=== PATIENT | female | born 1980 | race Caucasian/White ===

== ENCOUNTER → 2016-12-27 | Outpatient (CLI) | payer BC ==
--- NOTE | 2016-12-27 17:58 | CT ---
EXAMINATION TYPE: CT sinus wo con DATE OF EXAM: 12/27/2016 5:08 PM COMPARISON: NONE HISTORY: Sinus pain and pressure x years. CT DLP: 642.50 mGycm CONTRAST: None The paranasal sinuses are examined in the axial plane at 2 mm thick sections. Reconstructed images i n the coronal plane were obtained. The maxillary sinuses are clear. The ethmoid air cells are clear. The sphenoid sinuses are clear. The frontal sinuses are clear. The septum is evaluated. There is septal deviation to the left. The ostiomeatal units are patent. IMPRESSIONS: 1. Normal paranasal sinuses. 2. Left septal deviation.
== END | disposition home or self-care (01) ==
LOC: RADCTMAIN 16:51
PROVIDERS: ATTEND Otolaryngology
DX: J34.2 Deviated nasal septum (principal)
CPT/HCPCS: 70486

== ENCOUNTER → 2018-03-02 | Outpatient (CLI) | payer BC, OTHER ==
[2018-03-02 10:33] LABS: HCT 34.7 % (34.0-46.0); HGB 12.1 gm/dL (11.4-16.0); MCH 30.6 pg (25.0-35.0); MCHC 34.8 g/dL (31.0-37.0); MCV 88.2 fL (80.0-100.0); Mean Platelet Volume 9.7; Platelet Count 112 k/uL (150-450); RBC 3.94 m/uL (3.80-5.40); RDW 12.9 % (11.5-15.5); WBC 9.6 k/uL (3.8-10.6)
== END | disposition home or self-care (01) ==
LOC: LABWHC1 10:01
PROVIDERS: ATTEND Internal Medicine Hematology & Oncology
DX: D69.3 Immune thrombocytopenic purpura (principal)
CPT/HCPCS: 36415; 85027

== ENCOUNTER 2018-03-21 12:24 | Outpatient (CLI) | payer BC, OTHER ==
[2018-03-21 13:00] VITALS: BP 119/76; PULSE 66; RESP 17; TEMP 97.7
[2018-03-21 13:04] LABS: Appearance,Urine Clear (Clear); Bacteria,Urine Few /hpf; Bilirubin,Urine Negative (Negative); Blood,Urine Negative (Negative); Color,Urine Light Yellow; Glucose,Urine (UA) Negative (Negative); Ketones,Urine Negative (Negative); Leukocyte Esterase,Urine Moderate (Negative); Mucus,Urine Rare /hpf; Nitrite,Urine Negative (Negative); Protein,Urine Negative (Negative); Specific Gravity,Urine 1.007 (1.001-1.035); Squamous Epithelial Cell,Urine 2 /hpf (0-4); Urobilinogen,Urine <2.0 mg/dL (<2.0); WBC,Urine 2 /hpf (0-5)
[2018-03-21 13:07] LABS: Basophils % (A) 0 %; Eosinophils # (A) 0.1 k/uL (0-0.7); Eosinophils % (A) 1 %; HCT 36.4 % (34.0-46.0); HGB 12.3 gm/dL (11.4-16.0); Lymphocytes # (A) 1.9 k/uL (1.0-4.8); Lymphocytes % (A) 16 %; MCH 29.7 pg (25.0-35.0); MCHC 33.6 g/dL (31.0-37.0); MCV 88.2 fL (80.0-100.0); Mean Platelet Volume 10.2; Monocytes # (A) 0.5 k/uL (0-1.0); Monocytes % (A) 4 %; Neutrophils # (A) 9.1 k/uL (1.3-7.7); Neutrophils % (A) 78 %; Platelet Count 114 k/uL (150-450); RBC 4.13 m/uL (3.80-5.40); RDW 13.3 % (11.5-15.5); WBC 11.7 k/uL (3.8-10.6)
[2018-03-21 13:19] LABS: ALT 13 U/L (9-52); AST 13 U/L (14-36); Blood Urea Nitrogen 9 mg/dL (7-17); LDH 386 U/L (313-618); Uric Acid 4.2 mg/dL (3.7-7.4)
--- NOTE | 2018-04-01 07:59 | P.MSEPDOC ---
Presenting Problems - Arrival Data Date of Arrival on Unit: 03/21/18 Time of Arrival on Unit: 12:55 Mode of Transport: Ambulatory - Complaint OB-Reason for Admission/Chief Complaint: Headache, Visual Disturbances Comment: sent over from office by Dr. Olvera for PIH labs due to h/a, vision floaters. Medical History - Information : 4 Para: 0 Term: 0 : 0 Abortions: Spontaneous or Elective: 4 Number of Living Children: 0 - Gestational Age Gestational Age by JEREMI (wks/days): 35 Weeks and 6 Days Review of Systems - Review of Systems Constitutional: No problems Breast: No problems ENT: No problems Cardiovascular: No problems Respiratory: No problems Gastrointestinal: No problems Genitourinary: No problems Musculoskeletal: No problems Neurological: No problems Skin: No problems Vital Signs - Temperature Temperature: 97.7 F Temperature Source: Temporal Artery Scan - Pulse Pulse Oximetery Pulse Rate: 66 Pulse Assessment Method: Pulse Oximetry - Respirations Respiratory Rate: 17 Oxygen Delivery Method: Room Air - Blood Pressure Right Arm Blood Pressure: 119/76 Blood Pressure Mean: 90 Blood Pressure Source: Automatic Cuff Medical Screen Scoring (Pre) - Cervical Exam Dilation: Exam Deferred Effacement: Exam Deferred Membranes: Intact - Uterine Contractions Frequency: N/A Duration: N/A Intensity: N/A - Maternal Vital Signs Maternal Temperature: N/A Maternal Blood Pressure: N/A Maternal Respirations: N/A - Pain Assessment Pain Location and Character: Head Pain Scale Used: Numeric (1 - 10) Pain Intensity: 0 - Maternal Trauma Maternal Trauma: N/A - Assessment Baseline FHR: 130 Heart Rate - NICHD Category: Category I (Normal) = 0 NST: Reactive Position: N/A Station: N/A - Total Score Total Score (Pre): 0 - Level of Risk Level of Risk: Low (0-5) Physician Notification (Pre) - Notification Comment Comment: Dr. Olvera called previous to patient arriving to give telephone orders for PIH labs including LDH, Uric acid, BUN/creat, u/a (patient also arrived with written script). Call with results. Disposition - Disposition OB Disposition: Triage Discharge Date: 03/21/18 Discharge Time: 13:30 I agree with the RN Medical Screening Exam: Yes Risk & Benefit of care provided described in d/c instruction: Yes Diagnosis: RELATED CONDITIONS, UNSPECIFIED, THIRD TRIMESTER (Vague symptoms rule out preeclampsia)
== END 2018-03-21 13:30 | disposition home or self-care (01) ==
LOC: FBPOP 12:24
PROVIDERS: ATTEND Obstetrics & Gynecology
DX: O26.93 Pregnancy related conditions, unspecified, third trimester (principal); Z3A.35 35 weeks gestation of pregnancy
CPT/HCPCS: 59025; 81001; 82565; 83615; 84450; 84460; 84520; 84550; 85025; 99215

== ENCOUNTER → 2018-04-12 | Outpatient (CLI) | payer BC, OTHER ==
[2018-04-12 14:28] LABS: HCT 37.1 % (34.0-46.0); HGB 12.3 gm/dL (11.4-16.0); MCH 29.9 pg (25.0-35.0); MCHC 33.1 g/dL (31.0-37.0); MCV 90.4 fL (80.0-100.0); Mean Platelet Volume 11.4; RDW 13.4 % (11.5-15.5)
[2018-04-12 14:47] LABS: Platelet Count 93 k/uL (150-450)
== END ==
LOC: LABWHC1 12:56
PROVIDERS: ATTEND Obstetrics & Gynecology
DX: D69.6 Thrombocytopenia, unspecified (principal)
CPT/HCPCS: 36415; 85027

== ENCOUNTER 2018-04-16 04:28 | Inpatient (IN) | payer BC, OTHER ==
[2018-04-16] MEDS ORDERED: CARBOPROST TROMETHAMINE 250 MCG/ML 1 ML AMP IM PRN (04:43)
[2018-04-16] MEDS ORDERED: LIDOCAINE 1% (PF) 10 MG/ML (30 ML SDV) SQ PRN (04:43)
[2018-04-16] MEDS ORDERED: METHYLERGONOVINE 0.2 MG/ML 1 ML AMP IM PRN (04:43)
[2018-04-16] MEDS ORDERED: OXYTOCIN 10 UNIT/ML 1 ML VIAL IM PRN (04:43)
[2018-04-16] MEDS ORDERED: TERBUTALINE 1 MG/ML VIAL SQ PRN (04:43)
[2018-04-16] MEDS ORDERED: OXYTOCIN 20 UNITS/1000 ML NS 1,000 ML IV SCH (04:45)
[2018-04-16 05:01] VITALS: BMI 29.2
[2018-04-16 05:03] LABS: Basophils % (A) 0 %; Eosinophils % (A) 0 %; HCT 37.9 % (34.0-46.0); HGB 12.7 gm/dL (11.4-16.0); Lymphocytes # (A) 1.5 k/uL (1.0-4.8); Lymphocytes % (A) 12 %; MCH 30.3 pg (25.0-35.0); MCHC 33.5 g/dL (31.0-37.0); MCV 90.2 fL (80.0-100.0); Mean Platelet Volume 10.8; Monocytes # (A) 0.4 k/uL (0-1.0); Monocytes % (A) 3 %; Neutrophils # (A) 10.6 k/uL (1.3-7.7); Neutrophils % (A) 84 %; Platelet Count 112 k/uL (150-450); RBC 4.21 m/uL (3.80-5.40); RDW 13.3 % (11.5-15.5); WBC 12.7 k/uL (3.8-10.6)
[2018-04-16] MEDS: LACTATED RINGERS 1,000 ML IV SCH ×3 (05:04→12:48)
[2018-04-16] MEDS ORDERED: BUTORPHANOL 1 MG/ML 1 ML VIAL IV PRN (07:50)
[2018-04-16] MEDS ORDERED: BUPIVACAINE (PF) 0.25% 30 ML VIAL ONE (09:20)
[2018-04-16] MEDS ORDERED: fentaNYL (PF) 50 MCG/ML 5 ML AMP ONE (09:20)
[2018-04-16] MEDS ORDERED: SODIUM CHLORIDE 0.9% 100 ML BAG ONE (09:20)
[2018-04-16] MEDS ORDERED: BUPIVACAINE (PF) 0.5% 12.5 ML, fentaNYL (PF) 200 MCG in SODIUM CHLORIDE 0.9% 83.5 ML EPIDURAL ONE (10:07)
[2018-04-16] MEDS ORDERED: ACETAMINOPHEN TAB 325 MG TAB PO PRN (15:06)
[2018-04-16] MEDS ORDERED: WITCH HAZEL 1 EACH MED..PAD TOPICAL PRN (15:06)
[2018-04-16] MEDS ORDERED: diphenhydrAMINE 25 MG CAP PO PRN (15:06)
[2018-04-16] MEDS ORDERED: SIMETHICONE 80 MG CHEWABLE PO PRN (15:06)
[2018-04-16] MEDS ORDERED: HYDROCORTISONE 2.5% RECTAL CREAM 30 GM TUBE RECTAL PRN (15:06)
[2018-04-16] MEDS ORDERED: BENZOCAINE/MENTHOL SPRAY 1 GM/SPRAY AEROSOL TOPICAL PRN (15:06)
[2018-04-16] MEDS ORDERED: diphenhydrAMINE 50 MG CAP PO PRN (15:06)
[2018-04-16] MEDS ORDERED: ZOLPIDEM 5 MG TAB PO PRN (15:06)
[2018-04-16] MEDS ORDERED: diphenhydrAMINE 50 MG/ML 1 ML VIAL IVP PRN ×2 (15:06)
[2018-04-16] MEDS ORDERED: LANOLIN CREAM 5 GM TUBE TOPICAL PRN (15:06)
--- NOTE | 2018-04-16 15:08 | P.HPOB ---
History of Present Illness H&P Date: 04/16/18 Chief Complaint: Intrauterine at term: Induction of labor Cherry is a 37-year-old G1 for P0 at 39 weeks 4 days gestation arise for induction of labor. Her Precis course has generally been uncomplicated other than mild thrombocytopenia. She is seen hematology for same. She did see maternal medicine for advanced maternal age, and has had nonstress tests throughout the latter part of the . Pertinent labs include O- blood type Rh antibody was negative, rubella immune, hepatitis B surface antigen was negative as well as groupie strep. Her RPR was nonreactive. Past Medical History Past Medical History: No Reported History History of Any Multi-Drug Resistant Organisms: None Reported Additional Past Surgical History / Comment(s): Melanoma removal from left leg, forehead,neck, back, left arm starting in 2004 Past Anesthesia/Blood Transfusion Reactions: No Reported Reaction Past Psychological History: No Psychological Hx Reported Smoking Status: Never smoker Past Alcohol Use History: None Reported Past Drug Use History: None Reported - Past Family History Father Family Medical History: Cancer Mother Family Medical History: Thyroid Disorder Medications and Allergies Home Medications Medication Instructions Recorded Confirmed Type predniSONE [predniSONE] 40 mg PO BID 04/16/18 04/16/18 History Allergies Allergy/AdvReac Type Severity Reaction Status Date / Time No Known Allergies Allergy Verified 04/16/18 04:42 Exam Osteopathic Statement: *. No significant issues noted on an osteopathic structural exam other than those noted in the History and Physical/Consult. - Vital Signs Vital signs: Vital Signs Temp Pulse Resp BP 04/16/18 04:59 96.8 F L 56 L 16 117/75 Intake and Output 04/16/18 04/16/18 04/16/18 06:59 14:59 22:59 Other: # Voids 1 Weight 84.822 kg - OBG Physical Exam Breast: both: normal (no masses) Abdomen: bowel sounds normal, no diffuse tenderness, no bruit present, no guarding noted, no hepatomegaly, no splenomegaly, no mass Vulva: both: normal Vagina: normal moisture, no discharge Cervix: no lesion, no discharge Uterus: normal size, normal contour Adnexa: both: normal Anus/Rectum: normal perianal skin, no rectal mass, no hemorrhoids, heme negative Results Result Diagrams: 04/16/18 04:45 Abnormal Lab Results - Last 24 Hours (Table) 04/16/18 Range/Units 04:45 WBC 12.7 H (3.8-10.6) k/uL Plt Count 112 L (150-450) k/uL Neutrophils # 10.6 H (1.3-7.7) k/uL Assessment and Plan Assessment: Intrauterine at term: Induction of labor: Mild thrombocytopenia
--- NOTE | 2018-04-16 15:11 | P.PROBDLV ---
Vaginal Delivery Note - . Vaginal Delivery Note: Patient progressed to complete and pushing with spontaneous vaginal delivery of a viable male over a first degree perineal laceration. Baby was delivered from left occiput anterior position. Following delivery of the head the anterior shoulder was unable to be delivered with ease therefore posterior shoulder was delivered by grasping underneath his axilla and rotating in a clockwise fashion until anterior shoulder released, there was a compound hand and a cord around the body. Once baby was body was delivered the remainder the baby easily delivered and baby's mouth and nares were bulb suctioned and baby was placed on mother's abdomen where the umbilical cord was allowed to pulsate for 30 seconds prior to clamping and cutting. Once was accomplished placenta was then delivered intact and Pitocin was added to the IV. scores were 8 and 9 at one and 5 minutes Jay and weight was 7 lbs. 7 oz. There was a left labial tear which was repaired with reapproximation and 1 3-0 Vicryl sutures placed to reapproximate the first degree laceration on the perineum. This was all done following Xylocaine for analgesia. Both mother and baby are stable upon delivery.
[2018-04-16 15:38] LABS: Mean Platelet Volume 11.1
[2018-04-16 15:54] LABS: Platelet Count 87 k/uL (150-450)
[2018-04-16] MEDS: IBUPROFEN 600 MG TAB PO PRN ×2 (15:58→23:10)
[2018-04-16] MEDS ORDERED: HYDROcodone/APAP 5-325MG 1 EACH TAB PO PRN (16:46)
[2018-04-16] MEDS ORDERED: Rhogam IMMUNE GLOBULIN 1,500 UNIT/1 ML IM ONE (20:10)
[2018-04-16] MEDS: SENNOSIDES-DOCUSATE SODIUM 1 EACH TAB PO SCH (20:26)
[2018-04-16] MEDS: predniSONE 10 MG TAB PO SCH (21:45)
[2018-04-17] MEDS: SENNOSIDES-DOCUSATE SODIUM 1 EACH TAB PO SCH (08:19)
--- NOTE | 2018-04-17 08:59 | P.DS ---
Providers Date of admission: 04/16/18 04:28 Expected date of discharge: 04/17/18 Attending physician: Gaetano Olvera Consults: 04/16/18 16:47 Consult Physician Urgent Consulting Provider: Jose M Solano Consult Reason/Comments: thrombocytopenia Do you want consulting provider notified?: Yes Primary care physician: Stated None Hospital Course: Cherry is doing very well day 1. She is ambulating, voiding, and she is tolerating her diet. She voices no complaints. She is requesting [place] for 3 days to home with her period was done due to less than 3 days of treatment. Vital signs stable and afebrile. Heart regular, lungs clear, extremities without pain. She is passing flatus and her uterus is firm below the umbilicus. Prescription for [place] and Motrin are provided. As is a breast pump. She will follow up with me in 6 weeks. She is stable for discharge at this time. Patient Condition at Discharge: Good Plan - Discharge Summary New Discharge Prescriptions: New HYDROcodone/APAP 5-325MG [[place] 5-325] 1 tab PO Q4HR PRN 3 Days #18 tab PRN Reason: Pain Ibuprofen [Motrin] 600 mg PO Q6HR PRN #30 tab PRN Reason: Pain No Action predniSONE [predniSONE] 40 mg PO BID Discharge Medication List predniSONE [predniSONE] 40 mg PO BID 04/16/18 [History] HYDROcodone/APAP 5-325MG [[place] 5-325] 1 tab PO Q4HR PRN 3 Days #18 tab [Rx] Ibuprofen [Motrin] 600 mg PO Q6HR PRN #30 tab 04/17/18 [Rx] Follow up Appointment(s)/Referral(s): Gaetano Olvera DO [Doctor of Osteopathic Medicine] - 6 Weeks Activity/Diet/Wound Care/Special Instructions: No heavy lifting, limit stairs and driving, pelvic rest. If any high temperatures, heavy bleeding, or severe pain call my office Discharge Disposition: HOME SELF-CARE
[2018-04-17 09:35] VITALS: BP 129/68; PULSE 51; RESP 16; TEMP 98.7
[2018-04-17 13:06] LABS: Mean Platelet Volume 11.3
[2018-04-17 13:08] LABS: Platelet Count 98 k/uL (150-450)
[2018-04-17] MEDS: predniSONE 10 MG TAB PO SCH (13:14)
[2018-04-17] MEDS: IBUPROFEN 600 MG TAB PO PRN (16:17)
--- NOTE | 2018-04-17 17:09 | P.CONS ---
History of Present Illness - Reason for Consult Consult date: 04/17/18 recommendations for ITP after delivery Requesting physician: Gaetano Olvera - Chief Complaint ITP - History of Present Illness Cherry was referred to Dr. Solano by Dr. Olvera for evaluation of mild thrombocytopenia as the patient was and wanting to have epidural for delivery. patient has been monitored closely. Patient's platelet count has fluctuated between 80,000-100,000+, pt had no prior diagnosis of autoimmune disorders or family history of hematologic disorders. patient had prescription for prednisone as that would need to be started if patient's platelets fell below the 70-80,000 range which is usually the most comfortable area for epidural insertion. Patient was admitted,, from the notes uncomplicated delivery, patient took 30 mg of prednisone last night. Patient denies any unrealistic vaginal bleeding, no other bleeding to report, platelet count was 113,000 on admit, next draw 87,000 and prior to discharge 98,000. Patient states feeling well and is anxious to go home. She denies any side effects related to prednisone, no indigestion, heartburn or nausea. Review of Systems focused review of systems is as stated in HPI Past Medical History Past Medical History: No Reported History History of Any Multi-Drug Resistant Organisms: None Reported Additional Past Surgical History / Comment(s): Melanoma removal from left leg, forehead,neck, back, left arm starting in 2004 Past Anesthesia/Blood Transfusion Reactions: No Reported Reaction Past Psychological History: No Psychological Hx Reported Smoking Status: Never smoker Past Alcohol Use History: None Reported Past Drug Use History: None Reported - Past Family History Father Family Medical History: Cancer Mother Family Medical History: Thyroid Disorder Medications and Allergies Home Medications Medication Instructions Recorded Confirmed Type predniSONE [predniSONE] 30 mg PO DAILY 04/16/18 04/17/18 History HYDROcodone/APAP 5-325MG [[place] 1 tab PO Q4HR PRN 3 Days #18 tab 04/17/18 Rx 5-325] Ibuprofen [Motrin] 600 mg PO Q6HR PRN #30 tab 04/17/18 Rx Allergies Allergy/AdvReac Type Severity Reaction Status Date / Time No Known Allergies Allergy Verified 04/16/18 04:42 Physical Exam Vitals: Vital Signs Temp Pulse Resp BP 04/17/18 08:20 98.7 F 51 L 16 129/68 04/17/18 04:00 98.5 F 46 L 14 132/74 04/16/18 23:45 98.9 F 57 L 16 127/67 04/16/18 19:50 98.3 F 60 16 122/63 04/16/18 17:00 98.2 F 55 L 16 122/71 Intake and Output 04/17/18 04/17/18 04/17/18 06:59 14:59 22:59 Other: # Voids 1 1 patient is dressed, standing by the door, respirations even and unlabored, no physical signs or symptoms of distress. On visual inspection of the spine only a small jeff in the skin is noted, no bruising, swelling or pain to palpation of the area - Constitutional General appearance: average body habitus, cooperative, no acute distress Results CBC & Chem 7: 04/17/18 12:52 Labs: Abnormal Lab Results - Last 24 Hours (Table) 04/17/18 Range/Units 12:52 Plt Count 98 L (150-450) k/uL Assessment and Plan (1) Idiopathic thrombocytopenia purpura Narrative/Plan: Patient's platelets are 98,000 today. Patient has been given a steroid taper. Recommended slow taper over the next 12 days. Patient is okay for discharge from a hematology standpoint once cleared by Attending. She should follow up with Dr. Solano in about a month for a monitoring/follow-up plan for ITP. Status: Chronic Priority: Low Code(s): D69.3 - IMMUNE THROMBOCYTOPENIC PURPURA SNOMED Code(s): 93952493
== END 2018-04-17 16:25 | disposition home or self-care (01) | DRG 775 ==
LOC: 4FBP 04:28
PROVIDERS: ADMIT Obstetrics & Gynecology; ATTEND Obstetrics & Gynecology
PROC: 0HQ9XZZ Repair Perineum Skin, External Approach (ICD-10-PCS; principal; 2018-04-16)
PROC: 10E0XZZ Delivery of Products of Conception, External Approach (ICD-10-PCS; 2018-04-16)
PROC: 00HU33Z Insertion of Infusion Device into Spinal Canal, Percutaneous Approach (ICD-10-PCS; 2018-04-16)
PROC: 3E0R3NZ Introduction of Analgesics, Hypnotics, Sedatives into Spinal Canal, Percutaneous Approach (ICD-10-PCS; 2018-04-16)
DX: O99.12 Other diseases of the blood and blood-forming organs and certain disorders involving the immune mechanism complicating childbirth (principal); D69.3 Immune thrombocytopenic purpura; Z37.0 Single live birth; O70.0 First degree perineal laceration during delivery; Z3A.39 39 weeks gestation of pregnancy; Z85.820 Personal history of malignant melanoma of skin; Z79.52 Long term (current) use of systemic steroids; O69.81X0 Labor and delivery complicated by cord around neck, without compression, not applicable or unspecified; O32.6XX0 Maternal care for compound presentation, not applicable or unspecified
CPT/HCPCS: 85025; 85049; 85461; 86850; 86900; 86901; 88307

== ENCOUNTER 2020-09-29 06:00 | Inpatient (IN) | payer BC, OTHER ==
[2020-09-29] MEDS ORDERED: OXYTOCIN 10 UNIT/ML 1 ML VIAL IM PRN (06:13)
[2020-09-29] MEDS ORDERED: CARBOPROST TROMETHAMINE 250 MCG/ML 1 ML AMP IM PRN (06:13)
[2020-09-29] MEDS ORDERED: LIDOCAINE 0.5% (PF) 5 MG/ML (50 ML SDV) SQ PRN (06:13)
[2020-09-29] MEDS ORDERED: METHYLERGONOVINE 0.2 MG/ML 1 ML AMP IM PRN (06:13)
[2020-09-29] MEDS ORDERED: TERBUTALINE 1 MG/ML VIAL SQ PRN (06:13)
[2020-09-29] MEDS ORDERED: OXYTOCIN 30 UNITS/500 ML NS 30 UNIT in SALINE 1 500ML.BAG IV SCH (06:15)
[2020-09-29 06:29] LABS: Basophils % (A) 1 %; Eosinophils # (A) 0.1 k/uL (0-0.7); Eosinophils % (A) 1 %; HCT 35.8 % (34.0-46.0); HGB 11.5 gm/dL (11.4-16.0); Lymphocytes # (A) 1.7 k/uL (1.0-4.8); Lymphocytes % (A) 21 %; MCHC 32.2 g/dL (31.0-37.0); MCV 90.1 fL (80.0-100.0); Mean Platelet Volume 10.8; Monocytes # (A) 0.4 k/uL (0-1.0); Monocytes % (A) 5 %; Neutrophils # (A) 5.9 k/uL (1.3-7.7); Neutrophils % (A) 72 %; Platelet Count 109 k/uL (150-450); RBC 3.97 m/uL (3.80-5.40); RDW 13.9 % (11.5-15.5); WBC 8.2 k/uL (3.8-10.6)
[2020-09-29] MEDS: BUTORPHANOL 1 MG/ML 1 ML VIAL IV PRN ×2 (11:35→15:15)
[2020-09-29] MEDS: LACTATED RINGERS 1,000 ML IV SCH ×2 (12:57→15:21)
--- NOTE | 2020-09-29 18:30 | P.HPOB ---
History of Present Illness H&P Date: 09/29/20 Chief Complaint: Intrauterine Term: Induction of labor Cherry is a 40-year-old at 39 weeks gestation arise for induction of labor. At presentation she was initially dilated to 2 cm very posterior and while the head was engaged was not well engaged therefore delayed artificial rupture membranes and Pitocin augmentation of labor was initiated. Her course was generally uncomplicated other than advanced maternal age for which she received twice with the nonstress tests and close observation. She has done very well throughout the otherwise and is feeling well this time. A category 1 tracing is noted. Pertinent labs: O- blood type, Rh and it was negative, rubella is immune, hepatitis B surface antigen and RPR as well as groupie strep were negative. Plan will be for Pitocin augmentation of labor and she expects use epidural for analgesia. Expect spontaneous vaginal delivery Past Medical History Past Medical History: No Reported History History of Any Multi-Drug Resistant Organisms: None Reported Additional Past Surgical History / Comment(s): Melanoma removal from left leg, forehead,neck, back, left arm starting in 2004 Past Anesthesia/Blood Transfusion Reactions: No Reported Reaction Past Psychological History: No Psychological Hx Reported Smoking Status: Former smoker Past Alcohol Use History: None Reported Past Drug Use History: None Reported - Past Family History Father Family Medical History: Cancer Mother History Unknown: Yes Family Medical History: Thyroid Disorder Medications and Allergies Home Medications Medication Instructions Recorded Confirmed Type Pnv,Calcium 72/Iron/Folic Acid 1 tab PO DAILY 09/29/20 09/29/20 History [ Plus Tablet] Allergies Allergy/AdvReac Type Severity Reaction Status Date / Time No Known Allergies Allergy Verified 09/29/20 06:11 Exam Osteopathic Statement: *. No significant issues noted on an osteopathic structural exam other than those noted in the History and Physical/Consult. Vital Signs Temp Pulse Resp BP Pulse Ox 09/29/20 06:11 97.5 F L 84 16 122/79 100 Intake and Output 09/29/20 09/29/20 09/29/20 06:59 14:59 22:59 Intake Total 1000 Balance 1000 Intake: IV 1000 Other: # Voids 3 Weight 80.739 kg - OBG Physical Exam Breast: both: normal (no masses) Abdomen: bowel sounds normal, no diffuse tenderness, no bruit present, no guarding noted, no hepatomegaly, no splenomegaly, no mass Vulva: both: normal Vagina: normal moisture, no discharge Cervix: no lesion, no discharge Uterus: normal size, normal contour Adnexa: both: normal Anus/Rectum: normal perianal skin, no rectal mass, no hemorrhoids, heme negative Results Result Diagrams: 09/29/20 06:15 Abnormal Lab Results - Last 24 Hours (Table) 09/29/20 Range/Units 06:15 Plt Count 109 L (150-450) k/uL
--- NOTE | 2020-09-29 18:32 | P.PROBDLV ---
Vaginal Delivery Note - . Vaginal Delivery Note: Cherry progressed complete and pushed with spontaneous vaginal delivery of a viable male over an intact perineum. Following delivery of the head gentle downward traction was done to deliver the anterior shoulder from right occiput anterior position followed by upper traction deliver the posterior shoulder and remainder of the baby. A compound was noted but it was not a true nuchal cord. Once baby was fully delivered mouth nares were bulb suctioned and baby was placed on mother's abdomen where the umbilical cord was allowed to pulsate for 30 seconds prior to clamping and cutting. Once this was accomplished nursery personnel was present and assumed care. Placenta was then delivered intact and Pitocin was added to the IV. Both scores and weight are pending but both mother and baby appear stable following delivery. .
[2020-09-29] MEDS ORDERED: diphenhydrAMINE 25 MG CAP PO PRN (19:09)
[2020-09-29] MEDS ORDERED: LANOLIN CREAM 5 GM TUBE TOPICAL PRN (19:09)
[2020-09-29] MEDS ORDERED: SIMETHICONE 80 MG CHEWABLE PO PRN (19:09)
[2020-09-29] MEDS ORDERED: diphenhydrAMINE 50 MG CAP PO PRN (19:09)
[2020-09-29] MEDS ORDERED: ACETAMINOPHEN TAB 325 MG TAB PO PRN (19:09)
[2020-09-29] MEDS ORDERED: ZOLPIDEM 5 MG TAB PO PRN (19:09)
[2020-09-29] MEDS ORDERED: diphenhydrAMINE 50 MG/ML 1 ML VIAL IVP PRN ×2 (19:09)
[2020-09-29] MEDS ORDERED: HYDROCORTISONE 2.5% RECTAL CREAM 30 GM TUBE RECTAL PRN (19:09)
[2020-09-29] MEDS ORDERED: BENZOCAINE/MENTHOL SPRAY 1 GM/SPRAY AEROSOL TOPICAL PRN (19:09)
[2020-09-29] MEDS ORDERED: OXYTOCIN 20 UNITS/1000 ML NS 1,000 ML IV SCH (19:15)
[2020-09-29] MEDS: SENNOSIDES-DOCUSATE SODIUM 1 EACH TAB PO SCH (19:22)
[2020-09-29] MEDS: IBUPROFEN 600 MG TAB PO PRN (19:22)
[2020-09-29] MEDS ORDERED: Rhogam IMMUNE GLOBULIN 1,500 UNIT/1 ML IM ONE (23:54)
[2020-09-30] MEDS: IBUPROFEN 600 MG TAB PO PRN ×2 (01:02→08:19)
[2020-09-30 06:16] LABS: HCT 31.3 % (34.0-46.0); HGB 10.2 gm/dL (11.4-16.0); MCH 29.4 pg (25.0-35.0); MCHC 32.5 g/dL (31.0-37.0); MCV 90.2 fL (80.0-100.0); Mean Platelet Volume 12.5; RBC 3.47 m/uL (3.80-5.40); WBC 9.4 k/uL (3.8-10.6)
[2020-09-30 07:18] LABS: Lymphocytes # (M) 0.75 k/uL (1.0-4.8); Monocytes # (M) 0.28 k/uL (0-1.0); Neutrophils # (M) 8.37 k/uL (1.3-7.7); Neutrophils % (M) 89 %; Nucleated Red Blood Cells 0 /100 WBC (0-0); Platelet Count 94 k/uL (150-450); Total Cells Counted 100
[2020-09-30 07:19] LABS: Large Platelets Present
[2020-09-30] MEDS: SENNOSIDES-DOCUSATE SODIUM 1 EACH TAB PO SCH (08:20)
[2020-09-30 09:05] VITALS: RESP 18
--- NOTE | 2020-09-30 09:17 | P.DS ---
Providers Date of admission: 09/29/20 06:04 Expected date of discharge: 09/30/20 Attending physician: Gaetano Olvera Primary care physician: Stated None Hospital Course: Renny is doing very well post day 1. She is ambulating, voiding and tolerating a diet. She voices no complaints and is requesting discharge home tonight. Prescription for breast pump and Motrin reported to the pharmacy. All the questions are answered for her at this time. Vital signs are stable and afebrile. Heart regular, lungs clear, extremities without pain. Abdomen soft uterus is firm below the umbilicus. Lochia is reported light. Assessment postp artum day 1. Plan discharged home follow me in 6 weeks. Patient Condition at Discharge: Good Plan - Discharge Summary New Discharge Prescriptions: New Ibuprofen [Motrin] 600 mg PO Q6HR PRN #30 tab PRN Reason: Pain No Action Pnv,Calcium 72/Iron/Folic Acid [ Plus Tablet] 1 tab PO DAILY Discharge Medication List Pnv,Calcium 72/Iron/Folic Acid [ Plus Tablet] 1 tab PO DAILY 09/29/20 [History] Ibuprofen [Motrin] 600 mg PO Q6HR PRN #30 tab 09/30/20 [Rx] Follow up Appointment(s)/Referral(s): Gaetano Olvera DO [Doctor of Osteopathic Medicine] - 1 Week Activity/Diet/Wound Care/Special Instructions: Ting, limit stairs and driving, and pelvic rest. If any high temperatures, heavy bleeding, or severe pain call my office Discharge Disposition: HOME SELF-CARE
[2020-09-30] MEDS ORDERED: ROPIVACAINE 5MG/ML 20ML VIAL ONE (13:04)
[2020-09-30] MEDS ORDERED: fentaNYL (PF) 50 MCG/ML 5 ML AMP ONE (13:04)
[2020-09-30] MEDS ORDERED: SODIUM CHLORIDE 0.9% 100 ML BAG ONE (13:04)
[2020-09-30 17:10] VITALS: BP 113/69; PULSE 64; TEMP 98.6
== END 2020-09-30 18:30 | disposition home or self-care (01) | DRG 807 ==
LOC: 4FBP 06:04
PROVIDERS: ADMIT Obstetrics & Gynecology; ATTEND Obstetrics & Gynecology
PROC: 10E0XZZ Delivery of Products of Conception, External Approach (ICD-10-PCS; principal; 2020-09-29)
PROC: 3E0234Z Introduction of Serum, Toxoid and Vaccine into Muscle, Percutaneous Approach (ICD-10-PCS; 2020-09-29)
DX: O26.893 Other specified pregnancy related conditions, third trimester (principal); Z37.0 Single live birth; Z67.41 Type O blood, Rh negative; Z3A.39 39 weeks gestation of pregnancy; Z85.820 Personal history of malignant melanoma of skin; Z87.891 Personal history of nicotine dependence; Z83.49 Family history of other endocrine, nutritional and metabolic diseases; Z80.9 Family history of malignant neoplasm, unspecified
CPT/HCPCS: 85025; 85461; 86850; 86870; 86880; 86900; 86901

== ENCOUNTER 2021-07-27 06:30 | Day surgery (SDC) | payer OTHER ==
[2021-07-21 14:59] VITALS: BMI 22.8
--- NOTE | 2021-07-26 16:39 | P.HPOB ---
History of Present Illness H&P Date: 07/26/21 Chief Complaint: Family planning Cherry is a 41-year-old female who is completed her family planning and desires permanent sterilization. Risks/benefits/alternatives to a laparoscopic tubal ligation with sutures were reviewed with the patient in detail and all questions were answered for her prior to proceeding to the operative. Risks/benefits/alternatives to this procedure were discussed with the patient in detail including but not limited to bleeding and infection, damage to bladder or bowel, vascular degrees, nerve injuries, potential need for further surgeries. She is aware this is designed to be a permanent procedure and not designed to be reversed. It does carry a small failure rate of about 4 per thousand. All the questions were answered for her prior to proceeding to the operative room. Surgical procedure has been explained in great detail and all questions are answered. Past Medical History Past Medical History: No Reported History History of Any Multi-Drug Resistant Organisms: None Reported Additional Past Surgical History / Comment(s): Melanoma removal from left leg, forehead,neck, back, left arm starting in 2004 Past Anesthesia/Blood Transfusion Reactions: No Reported Reaction Smoking Status: Former smoker - Past Family History Father Family Medical History: Cancer Mother History Unknown: Yes Family Medical History: Thyroid Disorder Medications and Allergies Home Medications Medication Instructions Recorded Confirmed Type No Known Home Medications 07/21/21 07/21/21 History Allergies Allergy/AdvReac Type Severity Reaction Status Date / Time No Known Allergies Allergy Verified 07/21/21 14:53 Exam Osteopathic Statement: *. No significant issues noted on an osteopathic structural exam other than those noted in the History and Physical/Consult. - OBG Physical Exam Breast: both: normal (no masses) Abdomen: bowel sounds normal, no diffuse tenderness, no bruit present, no guarding noted, no hepatomegaly, no splenomegaly, no mass Vulva: both: normal Vagina: normal moisture, no discharge Cervix: no lesion, no discharge Uterus: normal size, normal contour Adnexa: both: normal Anus/Rectum: normal perianal skin, no rectal mass, no hemorrhoids, heme negative
[~2021-07-27 06:30] MED LIST: DEXAMETHASONE SOD PHOSPHATE 4 MG/ML 1 ML VIAL IV ONE; LACTATED RINGERS 1,000 ML IV SCH; MIDAZOLAM 2 MG/2 ML VIAL IV PRN; ONDANSETRON 4 MG/2 ML VIAL IVP ONE; Pre Op ABX Message 1 EACH MISC MISCELLANE ONE; SCOPOLAMINE 1.5MG/72HR PATCH TRANSDERM ONE
[2021-07-27 07:43] VITALS: RESP 16
[2021-07-27] MEDS ORDERED: LIDOCAINE 1% INJ 10MG/ML (20 ML MDV) ONE (08:40)
[2021-07-27] MEDS ORDERED: PROPOFOL 10 MG/ML 20 ML VIAL IV ONE (08:40)
[2021-07-27] MEDS ORDERED: ROCURONIUM 10 MG/ML (5 ML VIAL) IV ONE (08:40)
[2021-07-27] MEDS ORDERED: SUCCINYLCHOLINE CHLORIDE 100 MG/5 ML SYR IV ONE (08:40)
[2021-07-27] MEDS ORDERED: MIDAZOLAM 2 MG/2 ML VIAL ONE (08:40)
[2021-07-27] MEDS ORDERED: NEOSTIGMINE 1 MG/ML 10 ML VIAL ONE (08:40)
[2021-07-27] MEDS ORDERED: GLYCOPYRROLATE 0.2 MG/ML 2 ML VIAL ONE (08:40)
[2021-07-27] MEDS ORDERED: fentaNYL (PF) 50 MCG/ML 2 ML AMP ONE (08:40)
[2021-07-27] MEDS ORDERED: KETOROLAC 15 MG/ML 1 ML VIAL ONE (08:40)
--- NOTE | 2021-07-27 08:46 | US ---
EXAMINATION TYPE: Transabdominal DATE OF EXAM: 07/27/2021 8:15 AM COMPARISON: NONE CLINICAL HISTORY: PRE-OP CLEARANCE. Vaginal bleeding x 3 weeks post suction D&C post elective abortio n; Positive Urine x 2 today pre op OR for Tubal ligation;A1 EXAM PERFORMED: Transvaginal (TV) and Transabdominal (TA) EXAM MEASUREMENTS: GESTATIONAL AGE / DATING MATERNAL ANATOMY Uterus: 8.1 x 5.5 x 4.5cm Right Ovary: 3.8 x 3.1 x 1.7cm Left Ovary: 3.4 x 2.0 x 1.9cm Post CDS / Adnexa: wnl Presence of free fluid: no Presence of corpus luteal cyst: not identified Presence of subchorionic bleed: NA GESTATION / SURVEY No IUP seen but complex endometrial contents are noted = 3.5 x 2.7 x 2.1cm with vascularity present w ithin and on periphery of this endometrial contents, suggestive retained products of conception post elective . Multifollicular ovaries noted with color flow and PW Doppler present in bilateral ovaries. Grayscale, color Doppler, spectral Doppler imaging performed of the ovaries, vascular waveforms are noted bilat erally Complex Nabothian cyst noted in cervix = 0.9 x 0.8 x 0.7cm. Tech findings verbalized to in US tech room. JKristine Date of LMP: unsure Beta HcG (if available): not available at time of US. IMPRESSION: Abnormal appearance along the endometrium, consider retained products of conception, hemorrhage
[2021-07-27] MEDS ORDERED: BUPIVACAINE (PF) 0.25% 30 ML VIAL SQ ONE (08:59)
--- NOTE | 2021-07-27 09:22 | P.OP ---
Date of Procedure: 07/27/21 Preoperative Diagnosis: Family planning and retained products of conception Postoperative Diagnosis: Same Procedure(s) Performed: Suction D&C with left scopic tubal occlusion Filshie clips Anesthesia: MILTONA Surgeon: Gaetano Olvera Estimated Blood Loss (ml): 30 Urine output (ml): 150 Pathology: other (Uterine curettings) Condition: stable Disposition: same day Operative Findings: Benign small fibroids noted incidentally otherwise normal female pelvic anatomy Description of Procedure: Patient was taken to the operating suite where a general anesthetic was found be adequate. She was prepped and draped in the normal sterile fashion and placed in dorsal lithotomy position. Initially a weighted speculum was inserted in the vagina and the anterior lip cervix identified and grasped with a Allis clamp. Cervix then dilated and a uterine manipulator was then inserted without difficulty. Gloves were changed following placental red rubber catheter to drain the bladder of urine. Other incidents removed. Attention was turned to abdominal portion procedure and 2 mL of quarter percent Marcaine was injected periumbilically. Through this injected anesthetic a 5 mm skin incision was made and through this incision, under direct visualization with an optical trocar and sleeve the camera was inserted. Once peritoneal placement was assured gas was allowed to fully insufflate the abdomen and patient's placement steep Trendele nburg position. Second port and sleeve were then inserted through an 8 mm skin incision 2 cm above the pubic symphysis in the midline. Observations pelvis were noted. First the right fallopian tube than the left fallopian tube had a Filshie clip applied 2 cm from uterine cornu. No bleeding is noted in the mesosalpinx therefore incidents removed and gas was allowed to expel from the abdomen. 5 deep breaths were provided during this process. Once this was completed 4-0 Vicryl was used to reapproximate the skin incisions subcuticularly and another 7 or 8 mL of quarter percent Marcaine was injected around these incisions. Attention was then turned to the vagina again manipulator was removed and weighted speculum was reinserted. Lip of the cervix again was grasped with Allis clamp and using a 7 curved tip suction catheter the uterine curettings were obtained. Through the suction cup definite products were noted therefore after 2 passes suction was removed and gentle sharp rings curettings of endometrium were obtained. Another 2 passes with the suction tip catheter was then performed and no further bleeding is noted. All instruments removed. Sponge, lap, needle counts were correct 2. Patient was then taken to the recovery room in stable and satisfactory condition. Plan - Discharge Summary New Discharge Prescriptions: New HYDROcodone/APAP 5-325MG [[place] 5-325] 1 tab PO Q4HR PRN #30 tab PRN Reason: Pain Ibuprofen [Motrin] 600 mg PO Q6HR PRN #30 tab PRN Reason: Pain Discharge Medication List HYDROcodone/APAP 5-325MG [[place] 5-325] 1 tab PO Q4HR PRN #30 tab 07/27/21 [Rx] Ibuprofen [Motrin] 600 mg PO Q6HR PRN #30 tab 07/27/21 [Rx] Follow up Appointment(s)/Referral(s): Gaetano Olvera DO [Doctor of Osteopathic Medicine] - 2 Weeks Activity/Diet/Wound Care/Special Instructions: No Heavy Lifting limited stairs and driving, and pelvic rest. If any high temperatures, heavy bleeding, or severe pain call my office Discharge Disposition: HOME SELF-CARE
[2021-07-27] MEDS: HYDROmorphone 0.5 MG/0.5 ML SYRINGE IVP PRN ×4 (09:34→10:30)
[2021-07-27 10:06] VITALS: TEMP 97.4
[2021-07-27] MEDS ORDERED: HYDROcodone/APAP 5-325MG 1 EACH TAB PO ONE (10:48)
[2021-07-27] MEDS ORDERED: HYDROcodone/APAP 5-325MG 1 EACH TAB ONE (10:49)
[2021-07-27 11:16] VITALS: BP 114/71; PULSE 59
== END 2021-07-27 11:46 | disposition home or self-care (01) ==
LOC: OR 06:30
PROVIDERS: ATTEND Obstetrics & Gynecology
DX: O03.39 Incomplete spontaneous abortion with other complications (principal); Z30.2 Encounter for sterilization; Z87.891 Personal history of nicotine dependence
CPT/HCPCS: 81025; 88305; 84703; 76801; 76817; 59812; 58671; J2250; J1100; J2710; J2405; J2001; J3010; J1885; J0330; J2704; J1170